=== PATIENT | female | born 1985 | race Hispanic/Latino ===

== ENCOUNTER 2018-03-23 08:21 | Emergency (ER) | payer MEDICAID ==
[2018-03-23] MEDS ORDERED: ORPHENADRINE CITRATE 30 MG/ML ML ONE (09:00)
[2018-03-23] MEDS ORDERED: IBUPROFEN 600 MG TABLET ONE (09:01)
== END 2018-03-23 09:20 | disposition home or self-care (01) ==
LOC: EDH 08:21
DX: S00.83XA Contusion of other part of head, initial encounter (principal); S40.012A Contusion of left shoulder, initial encounter; S50.312A Abrasion of left elbow, initial encounter; Z98.890 Other specified postprocedural states; W01.0XXA Fall on same level from slipping, tripping and stumbling without subsequent striking against object, initial encounter; Y93.89 Activity, other specified; Y92.89 Other specified places as the place of occurrence of the external cause; Y99.8 Other external cause status
CPT/HCPCS: 96372; 99283; J2360